=== PATIENT | female | born 1950 | race Caucasian/White ===

== ENCOUNTER 2018-01-18 14:27 | Emergency (ER) | payer BC, MEDICARE, OTHER ==
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
[2018-01-18] MEDS ORDERED: NS 0.9% 1000 ML* 1,000 ML IV ONE (15:04)
[2018-01-18 15:27] LABS: ABS Basophils 0.1 10^3/ul (0-0.2); ABS Eosinophils 0.1 10^3/ul (0-0.6); ABS Lymphocytes 3.2 10^3/ul (1.0-4.8); ABS Monocytes 0.4 10^3/ul (0-0.8); ABS Neutrophils 2.9 10^3/ul (1.5-7.7); ABS Nucleated RBC 0 10^3/ul; Eosinophil % 0.9 % (0-6); Hematocrit 38 % (35-47); Hemoglobin 12.2 g/dl (12.0-16.0); Lymphocyte % 48.4 % (25-47); Mean Corpuscular HGB Conc 32 g/dl (31-36); Mean Corpuscular Hemoglobin 27 pg (27-31); Mean Corpuscular Volume 82 fL (80-97); Mean Platelet Volume 8.8 um3 (7.4-10.4); Nucleated Red Blood Cells % 0.1; Platelet Count 152 10^3/ul (150-450); Red Blood Count 4.61 10^6/ul (4.00-5.40); Red Cell Distribution Width 15 % (10.5-15); White Blood Count 6.6 10^3/ul (3.5-10.8)
[2018-01-18 15:37] LABS: INR 1.02 (0.77-1.02)
[2018-01-18 15:45] LABS: EGFR Non-African American 57.6 (>60)
[2018-01-18] MEDS ORDERED: Iodixanol* (CONTRAST) 320 MG/ML 100 ML SDV IV ONE (15:55)
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
--- NOTE | 2018-01-18 16:16 | RAD ---
INDICATION: Neurologic changes code ryder. COMPARISON: There are no prior studies available for comparison. TECHNIQUE: A portable view of the chest was obtained. FINDINGS: Cardiac and mediastinal contours appear to be within normal limits. The lungs are underinflated and clear. No pleural effusion is seen. IMPRESSION: NO EVIDENCE FOR ACUTE DISEASE.
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
[2018-01-18 17:36] LABS: Urine Appearance Clear; Urine Blood Negative (Negative); Urine Color Straw; Urine Ketones Negative (Negative); Urine Protein Negative (Negative); Urine Specific Gravity 1.005 (1.010-1.030); Urine Urobilinogen Negative (Negative)
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
[2018-01-18 20:59] VITALS: BP 147/74
== END 2018-01-18 20:14 | disposition home or self-care (01) ==
LOC: ED 14:27
DX: F07.81 Postconcussional syndrome (principal); S16.1XXA Strain of muscle, fascia and tendon at neck level, initial encounter; Y92.410 Unspecified street and highway as the place of occurrence of the external cause; V89.2XXA Person injured in unspecified motor-vehicle accident, traffic, initial encounter; M25.512 Pain in left shoulder; H57.12 Ocular pain, left eye; R00.1 Bradycardia, unspecified; I65.22 Occlusion and stenosis of left carotid artery; I10 Essential (primary) hypertension; I25.10 Atherosclerotic heart disease of native coronary artery without angina pectoris; I25.2 Old myocardial infarction; M06.9 Rheumatoid arthritis, unspecified; M17.10 Unilateral primary osteoarthritis, unspecified knee; M19.049 Primary osteoarthritis, unspecified hand; F17.210 Nicotine dependence, cigarettes, uncomplicated; Z88.0 Allergy status to penicillin; Z88.3 Allergy status to other anti-infective agents; Z79.82 Long term (current) use of aspirin; Z79.899 Other long term (current) drug therapy
CPT/HCPCS: 36415; 70450; 70496; 70498; 70551; 71045; 72125; 80053; 80061; 81003; 83605; 84484; 85025; 85610; 85730; 86850; 86900; 86901; 93005; 96360; 99284; Q9967

== ENCOUNTER → 2018-02-20 02:17 | Emergency (ER) | payer MEDICARE, BC ==
[~2018-02-20 02:17] MED LIST: Acetaminophen TAB* 325 MG PO ONE; Meclizine TAB* 12.5 MG PO ONE; Morphine INJ* 2 MG/ML 1 ML SYRINGE (TWO MG - NEW SYRINGE VERSION) IV ONE; Potassium Chlor TAB* 20 MEQ TAB.ER PO ONE
--- OUTSIDE RECORDS SUMMARY | 2018-02-20 02:25 | XMS REPORT ---
:1950 External Reference #:[id number] Author Organization Esvin Ramon M.D., [facility] Address [address] [address] [place] [address] Phone [phone] Care Team Providers Name Role Phone MD Stanley, Ta Primary Care Physician Unavailable Payers Type Date Identification Numbers Payment Provider Subscriber Medicare Primary Policy Number: [id number] [place] Leyla Valenzuela PayID: [id number] [address] [place] [address] Health Maintenance Policy Number: [id number] [place] [employer] Leyla Valenzuela [facility] ([facility]) PayID: [id number] [address] [place] [address] Problems Date Description Provider Status Onset: 12/23/2013 Hyperlipidemia Active Onset: 05/13/2013 Malignant essential hypertension Active Onset: 02/13/2012 Aortic valve disorder Active Onset: 02/13/2012 Right bundle branch block Active Onset: 02/13/2012 Electrocardiogram abnormal Active Onset: 02/13/2012 Coronary arteriosclerosis Active Onset: 02/13/2012 Benign essential hypertension Active Onset: Problem Active Family History Date Family Member(s) Problem(s) Comments Father Noncontributory Mother Noncontributory Social History Type Date Description Comments ETOH Use Never used alcohol Smoking Patient has never smoked Allergies, Adverse Reactions, Alerts Date Description Reaction Status Severity Comments 12/16/2015 Methotrexate rash, GI issues active Moderate 12/04/2008 Tetracyclines active 12/04/2008 Penicillins active 12/04/2008 Shellfish active Medications Medication Date Status Form Strength Qnty SIG Indications Ordering Provider Prednisolone 02/02 Active Suspension 1% 10ml 1 drop Errol Acetate tid OS x Gutierrez, 1 week OD Lotemax 01/19 Active Suspension 0.5% 5unit instill Errol /2017 s one drop Gutierrez, tid OS x OD 1 week, then d/c Acetaminophen Extra 01/18 Active Tablets 500mg Three Unknown Strength Times Daily Vitamin D 01/18 Active Tablets 1000Unit Every Unknown (Cholecalciferol) Day Losartan Potassium 12/23 Active Tablets 100mg 90tab 1 by s mouth every day Hydrochlorothiazide 07/14 Active Tablets 25mg 15tab 1 po prn s ( when she has edema) Aspirin Active Tablets 81mg 90tab 1 po qd s Acetaminophen Active Tablets 500mg 1 po Unknown once a day Omeprazole Active Tablets DR 20mg 1 by Unknown / mouth every day prn Amlodipine Besylate Active Tablets 5mg 1 by Unknown / mouth every day ([facility] by Dr. Angel) Immunizations CPT Code Status Date Vaccine Lot # [id number] Given 09/21/2015 Pneumococcal Vaccine 2Yrs Or Older Vital Signs Date Vital Result Comment 01/19/2018 Intraocular Pressure Right Eye 16 mmHg Intraocular Pressure Left Eye 16 mmHg Results Test Date Test Result H/L Range Note Laboratory Studies 01/18/2018 Urine Specific [place] 1.005 Low 1.010- 1.030 Urine pH 7.0 5-9 Laboratory Studies 01/18/2018 Absolute Basophils (auto) 0.1 10^3/ul 0- 0.2 Absolute Eosinophils (auto) 0.1 10^3/ul 0-0.6 Absolute Lymphocytes (auto) 3.2 10^3/ul 1.0-4.8 Absolute Monocytes (auto) 0.4 10^3/ul 0-0.8 Absolute Neutrophils (auto) 2.9 10^3/ul 1.5-7.7 Activated Partial Thromboplast Time 29.9 seconds 26.0-36.3 Alanine Aminotransferase (Alt/SGPT) 16 U/L 7-52 Albumin 4.0 g/dL 3.2-5.2 Albumin/Globulin Ratio 1.1 1-3 Alkaline Phosphatase 45 U/L 34-104 Anion Gap 8 mmol/L 2-11 Aspartate Amino Transf (Ast/Sgot) 19 U/L 13-39 BUN/Creatinine Ratio 14.6 8-20 Basophils (%) (Auto) 0.8 % 0-2 Blood Urea Nitrogen 14 mg/dL 6-24 Calcium Level 9.7 mg/dL 8.6-10.3 Carbon Dioxide Level 28 mmol/L 22-32 Chloride Level 105 mmol/L 101-111 Cholesterol Level 270 mg/dL Creatinine 0.96 mg/dL High 0.51-0.95 Eosinophils (%) (Auto) 0.9 % 0-6 Estimated GFR () 69.7 Estimated GFR (Non- 57.6 Globulin 3.5 g/dL 2-4 Glucose Level 84 mg/dL 70-100 HDL Cholesterol 65.4 mg/dL Hematocrit 38 % 35-47 Hemoglobin 12.2 g/dL 12.0-16.0 International Ratio (Anticoag Ther) 1.02 0.77-1.02 LDL Cholesterol 182 mg/dL Lactic Acid Level 0.6 mmol/L 0.5-2.0 Lymphocytes (%) (Auto) 48.4 % High 25-47 Mean Corpuscular Hemoglobin 27 pg 27-31 Mean Corpuscular Hemoglobin Concent 32 g/dL 31-36 Mean Corpuscular Volume 82 fL 80-97 Mean Platelet Volume 8.8 um3 7.4-10.4 Monocytes (%) (Auto) 6.4 % 0-7 Neutrophils (%) (Auto) 43.5 % 38-83 Nucleated RBC Absolute Count (auto) 0 10^3/ul Nucleated Red Blood Cells % 0.1 Platelet Count 152 10^3/ul 150-450 Potassium Level 3.4 mmol/L Low 3.5-5.0 Red Blood Count 4.61 10^6/ul 4.00-5.40 Red Cell Distribution Width 15 % 10.5-15 Sodium Level 141 mmol/L 135-145 Total Bilirubin 0.50 mg/dL 0.2-1.0 Total Protein 7.5 g/dL 6.4-8.9 Triglycerides Level 115 mg/dL Troponin I 0.04 ng/mL High White Blood Count 6.6 10^3/ul 3.5-10.8 Laboratory test finding 12/16/2015 Albumin 4.3 g/dL 3.2-5.2 Albumin/Globulin Ratio 1.3 1-3 Alkaline Phosphatase 43 U/L 34-104 Alt 18 U/L 7-52 Anion Gap 6 mmol/L 2-11 Ast 18 U/L 13-39 BUN/Creatinine Ratio 13.6 8-20 Blood Urea Nitrogen 16 mg/dL 6-24 C Reactive Protein < 1.00 mg/L < 5.00 1 Calcium 9.8 mg/dL 8.6-10.3 Chloride 106 mmol/L 101-111 Co2 Carbon Dioxide 29 mmol/L 22-32 Creatine Kinase(CK) 202 U/L 10-223 2 Creatinine 1.18 mg/dL High 0.51-0.95 Egfr 58.8 >60 Egfr Non- 45.7 >60 Erythrocyte Sed Rate 36 mm/Hr 0-40 3 Globulin 3.3 g/dL 2-4 Glucose 81 mg/dL 70-100 Magnesium 2.0 mg/dL 1.9-2.7 4 Potassium 4.1 mmol/L 3.5-5.0 Sodium 141 mmol/L 133-145 5 TSH (Thyroid Stim Horm) 1.37 ?IU/mL 0.34-5.60 6 Total Bilirubin 0.40 mg/dL 0.2-1.0 Total Protein 7.6 g/dL 6.4-8.9 Vitamin B12 395 pg/mL 180-914 7 CBC Auto Diff 12/16/2015 Abs Basophils 0 10^3/uL 0-0.2 Abs Eosinophils 0.1 10^3/uL 0-0.6 Abs Lymphocytes 4.8 10^3/uL 1.0-4.8 Abs Monocytes 0.5 10^3/uL 0-0.8 Abs Neutrophils 2.3 10^3/uL 1.5-7.7 Abs Nucleated RBC 0.01 10^3/uL Basophil % 0.6 % 0-2 Eosinophil % 1.5 % 0-6 Granulocyte % 29.5 % Low 38-83 Hematocrit 37 % 35-47 Hemoglobin 11.9 g/dL Low 12.0-16.0 Lymphocyte % 61.8 % High 25-47 Mean Corpuscular HGB Conc 32 g/dL 31-36 Mean Corpuscular Hemoglobin 27 pg 27-31 Mean Corpuscular Volume 84 fL 80-97 Mean Platelet Volume 9 um3 7.4-10.4 Monocyte % 6.6 % 1-9 Nucleated Red Blood Cells % 0.2 Platelet Count 166 10^3/uL 150-450 Red Blood Count 4.40 10^6/uL 4.0-5.4 Red Cell Distribution Width 16 % High 10.5-15 White Blood Count 7.8 10^3/uL 3.5-10.8 Laboratory test finding 10/20/2015 Albumin 4.4 g/dL 3.2-5.2 Albumin/Globulin Ratio 1.2 1-3 Alkaline Phosphatase 40 U/L 34-104 Alt 53 U/L High 7-52 Anion Gap 6 mmol/L 2-11 Ast 38 U/L 13-39 BUN/Creatinine Ratio 14.9 8-20 Blood Urea Nitrogen 17 mg/dL 6-24 C Reactive Protein < 1.00 mg/L < 5.00 8 Calcium 10.0 mg/dL 8.6-10.3 Chloride 105 mmol/L 101-111 Co2 Carbon Dioxide 26 mmol/L 22-32 Creatinine 1.14 mg/dL High 0.51-0.95 Egfr 61.1 >60 Egfr Non- 47.5 >60 Erythrocyte Sed Rate 39 mm/Hr 0-40 Globulin 3.6 g/dL 2-4 Glucose 88 mg/dL 70-100 Potassium 4.0 mmol/L 3.5-5.0 Sodium 137 mmol/L 133-145 9 Total Bilirubin 0.50 mg/dL 0.2-1.0 Total Protein 8.0 g/dL 6.4-8.9 CBC Auto Diff 10/20/2015 Abs Basophils 0 10^3/uL 0-0.2 Abs Eosinophils 0 10^3/uL 0-0.6 Abs Lymphocytes 2.2 10^3/uL 1.0-4.8 Abs Monocytes 0.4 10^3/uL 0-0.8 Abs Neutrophils 2.7 10^3/uL 1.5-7.7 Abs Nucleated RBC 0.02 10^3/uL Basophil % 0.6 % 0-2 Eosinophil % 0.8 % 0-6 Granulocyte % 50.5 % 38-83 Hematocrit 39 % 35-47 Hemoglobin 12.4 g/dL 12.0-16.0 Lymphocyte % 40.8 % 25-47 Mean Corpuscular HGB Conc 32 g/dL 31-36 Mean Corpuscular Hemoglobin 27 pg 27-31 Mean Corpuscular Volume 83 fL 80-97 Mean Platelet Volume 9 um3 7.4-10.4 Monocyte % 7.3 % 1-9 Nucleated Red Blood Cells % 0.4 Platelet Count 170 10^3/uL 150-450 Red Blood Count 4.64 10^6/uL 4.0-5.4 Red Cell Distribution Width 16 % High 10.5-15 White Blood Count 5.4 10^3/uL 3.5-10.8 Laboratory test finding 09/25/2015 Albumin 4.3 g/dL 3.2-5.2 Albumin/Globulin Ratio 1.2 1-3 Alkaline Phosphatase 41 U/L 34-104 Alt 23 U/L 7-52 Anion Gap 5 mmol/L 2-11 Ast 25 U/L 13-39 BUN/Creatinine Ratio 14.0 8-20 Blood Urea Nitrogen 17 mg/dL 6-24 C Reactive Protein 1.63 mg/L < 5.00 10 Calcium 9.4 mg/dL 8.6-10.3 Chloride 105 mmol/L 101-111 Co2 Carbon Dioxide 29 mmol/L 22-32 Creatinine 1.21 mg/dL High 0.51-0.95 Egfr 57.1 >60 Egfr Non- 44.4 >60 Erythrocyte Sed Rate 43 mm/Hr High 0-40 Globulin 3.5 g/dL 2-4 Glucose 80 mg/dL 70-100 Potassium 3.6 mmol/L 3.5-5.0 Sodium 139 mmol/L 133-145 11 Total Bilirubin 0.40 mg/dL 0.2-1.0 Total Protein 7.8 g/dL 6.4-8.9 CBC Auto Diff 09/25/2015 Abs Basophils 0 10^3/uL 0-0.2 Abs Eosinophils 0.1 10^3/uL 0-0.6 Abs Lymphocytes 2.9 10^3/uL 1.0-4.8 Abs Monocytes 0.3 10^3/uL 0-0.8 Abs Neutrophils 1.8 10^3/uL 1.5-7.7 Abs Nucleated RBC 0.02 10^3/uL Basophil % 0.5 % 0-2 Eosinophil % 1.7 % 0-6 Granulocyte % 35.0 % Low 38-83 Hematocrit 39 % 35-47 Hemoglobin 12.0 g/dL 12.0-16.0 Lymphocyte % 57.0 % High 25-47 Mean Corpuscular HGB Conc 31 g/dL 31-36 Mean Corpuscular Hemoglobin 26 pg Low 27-31 Mean Corpuscular Volume 85 fL 80-97 Mean Platelet Volume 10 um3 7.4-10.4 Monocyte % 5.8 % 1-9 Nucleated Red Blood Cells % 0.3 Platelet Count 183 10^3/uL 150-450 Red Blood Count 4.60 10^6/uL 4.0-5.4 Red Cell Distribution Width 15 % 10.5-15 White Blood Count 5.1 10^3/uL 3.5-10.8 1 Acute inflammation: >10.00 2 Please check this week please 3 Please check this week please 4 Please check this week please 5 Because ethnic data is not always readily available, this report includes an eGFR for both -Americans and non- Americans. The National Kidney Disease Education Program (NKDEP) does not endorse the use of the MDRD equation for patients that are not between the ages of 18 and 70, are , have extremes of body size, muscle mass, or nutritional status, or are non- or non-. According to the National Kidney Foundation, irrespective of diagnosis, the stage of the disease is based on the level of kidney function: Stage Description GFR(mL/min/1.73 m(2)) 1 Kidney damage with normal or decreased GFR 90 2 Kidney damage with mild decrease in GFR 60-89 3 Moderate decrease in GFR 30-59 4 Severe decrease in GFR 15-29 5 Kidney failure <15 (or dialysis) 6 Please check this week please 7 Normal Range 180 to 914 Indeterminate Range 145 to 180 Deficient Range <145 8 Acute inflammation: >10.00 9 Because ethnic data is not always readily available, this report includes an eGFR for both -Americans and non- Americans. The National Kidney Disease Education Program (NKDEP) does not endorse the use of the MDRD equation for patients that are not between the ages of 18 and 70, are , have extremes of body size, muscle mass, or nutritional status, or are non- or non-. According to the National Kidney Foundation, irrespective of diagnosis, the stage of the disease is based on the level of kidney function: Stage Description GFR(mL/min/1.73 m(2)) 1 Kidney damage with normal or decreased GFR 90 2 Kidney damage with mild decrease in GFR 60-89 3 Moderate decrease in GFR 30-59 4 Severe decrease in GFR 15-29 5 Kidney failure <15 (or dialysis) 10 Acute inflammation: >10.00 11 Because ethnic data is not always readily available, this report includes an eGFR for both -Americans and non- Americans. The National Kidney Disease Education Program (NKDEP) does not endorse the use of the MDRD equation for patients that are not between the ages of 18 and 70, are , have extremes of body size, muscle mass, or nutritional status, or are non- or non-. According to the National Kidney Foundation, irrespective of diagnosis, the stage of the disease is based on the level of kidney function: Stage Description GFR(mL/min/1.73 m(2)) 1 Kidney damage with normal or decreased GFR 90 2 Kidney damage with mild decrease in GFR 60-89 3 Moderate decrease in GFR 30-59 4 Severe decrease in GFR 15-29 5 Kidney failure <15 (or dialysis) Procedures Date CPT Code Description Status 01/19/2018 03690 Ophthalmoscopy Initial Completed 01/19/2018 88494 Eye Exam New Intermediate Completed Plan of Care Future Appointment(s):02/09/2018 11:15 am - Errol Gutierrez OD at [id number] - Errol Gutierrez, [id number] Vitreous degeneration, left eyeFollow up:1 week f/u
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
[2018-02-20 03:07] LABS: ABS Basophils 0 10^3/ul (0-0.2); ABS Eosinophils 0.1 10^3/ul (0-0.6); ABS Monocytes 0.5 10^3/ul (0-0.8); ABS Neutrophils 2.6 10^3/ul (1.5-7.7); ABS Nucleated RBC 0 10^3/ul; Eosinophil % 1.5 % (0-6); Hematocrit 38 % (35-47); Hemoglobin 12.3 g/dl (12.0-16.0); Lymphocyte % 54.9 % (25-47); Mean Corpuscular HGB Conc 33 g/dl (31-36); Mean Corpuscular Hemoglobin 27 pg (27-31); Mean Corpuscular Volume 83 fL (80-97); Mean Platelet Volume 8.6 um3 (7.4-10.4); Nucleated Red Blood Cells % 0.1; Platelet Count 173 10^3/ul (150-450); Red Blood Count 4.58 10^6/ul (4.00-5.40); Red Cell Distribution Width 15 % (10.5-15); White Blood Count 7.3 10^3/ul (3.5-10.8)
[2018-02-20 03:24] LABS: EGFR Non-African American 37.9 (>60)
--- NOTE | 2018-02-20 03:47 | RAD ---
EXAM: CT Head Without Intravenous Contrast CLINICAL HISTORY: 67 years old, female; Signs and symptoms; Dizziness and syncope and collapse and walking, difficulty; Patient HX: Dizzy and fell TECHNIQUE: Axial computed tomography images of the head/brain without intravenous contrast. COMPARISON: BRAIN WO CT BRAIN WO 2018-01-18 17:05 FINDINGS: Brain: No evidence of acute intracranial hemorrhage. No intracranial mass or mass effect. 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 Ventricles: No obstructive hydrocephalus. Bones/joints: Unremarkable. No acute fracture. Soft tissues: Unremarkable. Vasculature: Vascular calcification. Sinuses: Unremarkable as visualized. No acute sinusitis. Mastoid air cells: Unremarkable as visualized. No mastoid effusion. Other findings: Since prior head CT of 01/18/2018, no new findings. IMPRESSION: No acute findings. R0
[2018-02-20 03:52] LABS: INR 1.02 (0.77-1.02)
[2018-02-20 04:45] VITALS: BP 131/76
--- NOTE | 2018-02-20 07:49 | RAD ---
HISTORY: fall COMPARISONS: September 07, 2015 VIEWS: 1: frontal portable view of the chest at 3:17 AM FINDINGS: LINES AND TUBES: None. CARDIOMEDIASTINAL SILHOUETTE: The cardiac silhouette is enlarged. The cardiomediastinal silhouette is otherwise normal for portable technique. PLEURA: The costophrenic angles are sharp. No pleural abnormalities are noted. LUNG PARENCHYMA: The lungs are clear. ABDOMEN: The upper abdomen is clear. There is no subphrenic gas. BONES AND SOFT TISSUES: No bone or soft tissue abnormalities are noted. IMPRESSION: CARDIOMEGALY. NO ACTIVE CARDIOPULMONARY DISEASE. R2
--- NOTE | 2018-02-20 07:49 | RAD ---
HISTORY: fall, left-sided weakness, COMPARISONS: None VIEWS: 2, Frontal and lateral views of the left forearm FINDINGS: BONE DENSITY: Normal. BONES: There is no displaced fracture. JOINTS: There is no arthropathy. ALIGNMENT: There is no dislocation. SOFT TISSUES: Unremarkable. OTHER FINDINGS: None. IMPRESSION: NO ACUTE OSSEOUS INJURY. IF SYMPTOMS PERSIST, RECOMMEND REPEAT IMAGING. R0
== END | disposition home or self-care (01) ==
LOC: ED 02:17
DX: H81.10 Benign paroxysmal vertigo, unspecified ear (principal); R00.1 Bradycardia, unspecified; I45.10 Unspecified right bundle-branch block; I51.7 Cardiomegaly; F17.210 Nicotine dependence, cigarettes, uncomplicated; I25.10 Atherosclerotic heart disease of native coronary artery without angina pectoris; M06.9 Rheumatoid arthritis, unspecified; M19.90 Unspecified osteoarthritis, unspecified site; Z95.5 Presence of coronary angioplasty implant and graft; Z79.899 Other long term (current) drug therapy; Z88.0 Allergy status to penicillin; Z88.3 Allergy status to other anti-infective agents
CPT/HCPCS: 36415; 70450; 71045; 80053; 82550; 83605; 83735; 84443; 84484; 85025; 85610; 85730; 93005; 99283; A9270-GY

== ENCOUNTER 2018-07-04 12:00 | Emergency (ER) | payer MEDICARE, BC ==
--- NOTE | 2018-07-04 13:47 | ED ---
Upper Extremity Pain - HPI Summary HPI Summary: This patient is a 67 year old female presenting to [facility] with a chief complaint of ecchymosis since yesterday morning. Patient states that she had pain in her left arm 2 days ago and when she woke up yesterday morning, she woke up to an unexplained bruised on her upper arm. Patient states that today, the bruising had shifted downwards and has gotten bigger since yesterday. The pain is rated 8 /10 in severity. Symptoms aggravated by nothing. Symptoms alleviated by nothing. Patient denies any other medical symptoms at this time. - History of Current Complaint Chief Complaint: EDExtremityUpper Stated Complaint: BRUISE ON LF SHOULDER Time Seen by Provider: 07/04/18 13:09 Hx Obtained From: Patient Mechanism Of Injury: Unknown Onset/Duration: Started Days Ago, Still Present Timing: Constant Severity Currently: Mild Pain Location: Arm - left Aggravating Factor(s): Nothing Alleviating Factor(s): Nothing - Allergies/Home Medications Allergies/Adverse Reactions: Allergies Allergy/AdvReac Type Severity Reaction Status Date / Time ampicillin Allergy Anaphylatic Verified 07/04/18 12:45 Shock Penicillins Allergy Anaphylatic Verified 07/04/18 12:45 Shock shellfish derived Allergy Anaphylatic Verified 07/04/18 12:45 Shock Tetracyclines Allergy Anaphylatic Verified 07/04/18 12:45 Shock PMH/Surg Hx/FS Hx/Imm Hx Previously Healthy: No Endocrine/Hematology History: Denies: Hx Diabetes Cardiovascular History: Reports: Hx Angina, Hx Coronary Artery Disease, Hx Hypercholesterolemia, Hx Hypertension, Hx Myocardial Infarction - 2000 Denies: Hx Pacemaker/ICD, Hx Valvular Heart Disease Respiratory History: Denies: Hx Asthma, Hx Chronic Obstructive Pulmonary Disease (COPD) Musculoskeletal History: Reports: Hx Rheumatoid Arthritis Denies: Hx Osteoporosis Sensory History: Denies: Hx Contacts or Glasses, Hx Hearing Aid Opthamlomology History: Denies: Hx Contacts or Glasses Psychiatric History: Denies: Hx Panic Disorder - Surgical History Surgery Procedure, Year, and Place: CARDIAC CATH W/ STENTING; PARTIAL HYSTERECTOMY Infectious Disease History: No Infectious Disease History: Denies: Traveled Outside the [place] in Last 30 Days - Family History Known Family History: Positive: Cardiac Disease - [place], Diabetes, Other - stroke - Social History Occupation: Retired Alcohol Use: None Hx Substance Use: No Substance Use Type: Reports: None Substance Use Comment - Amount & Last Used: occasionally Hx Tobacco Use: Yes Smoking Status (MU): Light Every Day Tobacco Smoker Type: Cigarettes Amount Used/How Often: 2-3 cigarettes/day Length of Time of Smoking/Using Tobacco: one year Have You Smoked in the Last Year: Yes Review of Systems Negative: Fever Positive: Bruising - left upper arm All Other Systems Reviewed And Are Negative: Yes Physical Exam - Summary Physical Exam Summary: Appearance: Well appearing, no pain distress Skin: warm, dry, 1 by 1.7 x 2.2 cm hematoma present in lateral aspect of left upper arm. Head/face: normal, partial right facial palsy Eyes: EOMI, AMINA ENT: mucous membranes moist Neck: supple, non-tender Respiratory: CTA, breath sounds present Cardiovascular: RRR, pulses symmetrical Abdomen: non-tender, soft Bowel Sounds: present Musculoskeletal: normal, strength/ROM intact Neuro: normal, sensory motor intact, A&Ox3, dysarthria Triage Information Reviewed: Yes Vital Signs On Initial Exam: Initial Vitals Temp Pulse Resp BP Pulse Ox 98.7 F 61 20 102/50 96 07/04/18 12:41 07/04/18 12:41 07/04/18 12:41 07/04/18 12:41 07/04/18 12:41 Vital Signs Reviewed: Yes Diagnostics - Vital Signs Vital Signs Temp Pulse Resp BP Pulse Ox 07/04/18 12:41 98.7 F 61 20 102/50 96 - Laboratory Lab Statement: Any lab studies that have been ordered have been reviewed, and results considered in the medical decision making process. - Radiology Humerus XR Summary of Radiographic Findings: Humerous XR reveals, per radiologist, IMPRESSION: NO ACUTE OSSEUS INJURY. IF SYMPTOMS PERSIST, RECOMMEND REPEAT IMAGING. ED physician has reviewed this radiology report. - EKG 1303 Cardiac Rate: Bradycardia EKG Rhythm: Sinus Bradycardia - 50 BPM Summary of EKG Findings: An EKG, taken 1303, reveals Sinus Bradycardia (50 BPM) , left axis deviation, RBBB, nonspecific ST Course/Dx - Course Course Of Treatment: Nurse's notes reviewed. Patient has ecchymosis in her left upper arm. Bedside ultrasound reveals a small underlying hematoma. X- rays negative. She was treated with lidocaine patch and compression with Parag wrap. She will follow-up with her primary care physician. - Diagnoses Differential Diagnosis/HQI/PQRI: Positive: Contusion, Fracture (Closed), Hematoma Provider Diagnoses: Hematoma Discharge - Sign-Out/Discharge Documenting (check all that apply): Patient Departure - Discharge Plan Condition: Improved Disposition: HOME Patient Education Materials: Hematoma (ED) Referrals: Ta Angel MD [Primary Care Provider] - Additional Instructions: Warm compresses to the area. Lidocaine patches can be obtained over-the- counter. These are far cheaper than the prescribed version. He may help with the pain. Use the Parag wrap for compression. Follow up with your doctor tomorrow. Return if worse, new symptoms or other concerns. - Billing Disposition and Condition Condition: IMPROVED Disposition: Home - Attestation Statements Document Initiated by Claudy: Yes Documenting Scribe: Radha Colby Provider For Whom Claudy is Documenting (Include Credential): Merritt Sierra MD Scribe Attestation: Radha Villanueva scribed for Merritt Sierra MD on 07/04/18 at 1957. Scribe Documentation Reviewed: Yes Provider Attestation: The documentation as recorded by the Radha walker accurately reflects the service I personally performed and the decisions made by , Merritt Sierra MD Status of Scribshey Document: Viewed
[2018-07-04] MEDS ORDERED: Lidocaine PATCH 5%* 1 PATCH TRANSDERM SCH (14:00)
[2018-07-04 14:25] VITALS: BP 110/59
[2018-07-04] MEDS ORDERED: Lidocaine Patch REMOVE* 1 NOTE MISC SCH (21:00)
== END 2018-07-04 14:24 | disposition home or self-care (01) ==
LOC: ED 12:00
DX: S40.022A Contusion of left upper arm, initial encounter (principal); X58.XXXA Exposure to other specified factors, initial encounter; Y92.9 Unspecified place or not applicable; Z88.0 Allergy status to penicillin; F17.210 Nicotine dependence, cigarettes, uncomplicated; I25.10 Atherosclerotic heart disease of native coronary artery without angina pectoris
CPT/HCPCS: 93005; 99282; A9270-GY

== ENCOUNTER 2020-12-06 18:48 | Inpatient (IN) ==
[2020-12-06 19:06] LABS: Hematocrit 40 % (35-47); Mean Corpuscular HGB Conc 33 g/dL (31-36); Mean Corpuscular Hemoglobin 27 pg (27-31); Mean Corpuscular Volume 83 fL (80-97); Mean Platelet Volume 9.2 fL (7.4-10.4); Platelet Count 186 10^3/uL (150-450); Red Blood Count 4.75 10^6 /uL (3.70-4.87); Red Cell Distribution Width 15 % (10-15); White Blood Count 8.6 10^3/uL (3.5-10.8)
[2020-12-06] MEDS ORDERED: Morphine 4 MG/ML VIAL (1 ml) IV ONE ×3 (19:11→20:08)
[2020-12-06 19:13] LABS: INR 1.1 (0.82-1.09)
[2020-12-06 19:25] LABS: ALT 19 U/L (7-52); Albumin/Globulin Ratio 1.2 (1-3); Alkaline Phosphatase 44 U/L (35-149); Blood Urea Nitrogen 17 mg/dL (6-24); CO2 Carbon Dioxide 26 mmol/L (22-32); Calcium 9.4 mg/dL (8.6-10.3); Chloride 104 mmol/L (101-111); EGFR African American 57.9 (>60); EGFR Non-African American 47.8 (>60); Globulin 3.3 g/dL (2-4); Glucose 108 mg/dL (70-100); Sodium 139 mmol/L (135-145); Total Protein 7.3 g/dL (6.4-8.9)
[2020-12-06 19:33] LABS: ABS Basophils 0.1 10^3/ul (0-0.2); ABS Eosinophils 0.1 10^3/ul (0-0.6); ABS Lymphocytes 5.5 10^3/ul (1.0-4.8); ABS Monocytes 0.6 10^3/ul (0-0.8); ABS Neutrophils 2.3 10^3/ul (1.5-7.7); Eosinophil % 1.5 %; Lymphocyte % 63.7 %; Nucleated Red Blood Cells % 0.1
[2020-12-06] MEDS ORDERED: Iodixanol (CONTRAST) 320 MG/ML 100 ML SDV IV ONE (19:35)
[2020-12-06] MEDS ORDERED: NS 0.9% 1000 ml BAG 1,000 ML IV ONE (19:35)
[2020-12-06] MEDS ORDERED: Ondansetron 4 mg VIAL 2 MG/ML 2 ml VIAL IV ONE (19:42)
[2020-12-06] MEDS ORDERED: Ondansetron 4 mg VIAL 2 MG/ML 2 ml VIAL ONE (19:43)
[2020-12-06 19:47] LABS: AST 21 U/L (13-39); Anion Gap 9 mmol/L (2-11); Potassium 3.1 mmol/L (3.5-5.0); Troponin I 0.05 ng/mL (<0.03)
[2020-12-06] MEDS ORDERED: nitroGLYCERIN DRIP 25,000 MCG/250 ML BTL IV ONE (20:04)
[2020-12-06] MEDS ORDERED: Heparin DRIP 25,000 UNITS BAG 25,000 UNITS/500 ML BAG IV SCH (20:15)
[2020-12-06] MEDS ORDERED: Heparin 5000 UNITS/ML 1 mL VIAL IV SCH (21:00)
[2020-12-06 22:03] LABS: Blood Urea Nitrogen 15 mg/dL (6-24); EGFR African American 71.7 (>60); EGFR Non-African American 59.3 (>60)
[2020-12-06 22:10] LABS: Troponin I 0.22 ng/mL (<0.03)
[2020-12-06 23:41] LABS: Cholesterol 317 mg/dL; HDL Cholesterol 87.1 mg/dL; LDL Cholesterol 195 mg/dL; Triglycerides 173 mg/dL
[2020-12-07 00:57] LABS: Troponin I 0.95 ng/mL (<0.03)
[2020-12-07] MEDS ORDERED: Nitro 2% OINT (Nitroglycerin) 1 INCH/PAK TOPICAL ONE (03:49)
[2020-12-07] MEDS ORDERED: NS 0.9% w/ 20 Meq KCL 1000 ml 1,000 ML IV SCH (06:00)
[2020-12-07 06:18] LABS: ABS Monocytes 0.5 10^3/ul (0-0.8); ABS Neutrophils 5.7 10^3/ul (1.5-7.7); Eosinophil % 0.4 %; Hematocrit 39 % (35-47); Hemoglobin 12.4 g/dL (12.0-16.0); Lymphocyte % 23.8 %; Mean Corpuscular HGB Conc 32 g/dL (31-36); Mean Corpuscular Hemoglobin 27 pg (27-31); Mean Corpuscular Volume 85 fL (80-97); Mean Platelet Volume 8.9 fL (7.4-10.4); Platelet Count 119 10^3/uL (150-450); Red Blood Count 4.53 10^6 /uL (3.70-4.87); Red Cell Distribution Width 16 % (10-15); White Blood Count 8.2 10^3/uL (3.5-10.8)
[2020-12-07 06:45] LABS: Troponin I 6.96 ng/mL (<0.03)
[2020-12-07] MEDS ORDERED: Prochlorperazine 5 mg/ml 2 ml VIAL (10 mg) IV PRN (07:48)
[2020-12-07] MEDS: Cholecalciferol (VIT D3) 1,000 unit TAB PO SCH (08:17)
[2020-12-07] MEDS: Aspirin EC 81 mg TAB.EC (enteric coated) PO SCH (08:18)
[2020-12-07 09:11] LABS: Anion Gap 12 mmol/L (2-11); CO2 Carbon Dioxide 21 mmol/L (22-32); Calcium 9.1 mg/dL (8.6-10.3); Chloride 103 mmol/L (101-111); Magnesium 1.9 mg/dL (1.9-2.7); Potassium 3.5 mmol/L (3.5-5.0); Sodium 136 mmol/L (135-145)
[2020-12-07 09:17] LABS: Blood Urea Nitrogen 13 mg/dL (6-24); EGFR African American 87.8 (>60); EGFR Non-African American 72.6 (>60); Glucose 99 mg/dL (70-100)
[2020-12-07] MEDS ORDERED: Nitro Patch/OINT Remove PATCH TOPICAL ONE (10:00)
[2020-12-07 11:08] LABS: Troponin I 15.41 ng/mL (<0.03)
[2020-12-07] MEDS ORDERED: hydrALAZINE 20 mg/ml 1 ML Vial IV IV SLOW PU PRN ×2 (11:16→16:04)
[2020-12-07 11:37] LABS: Activated Partial Thrombo Time 117.2 seconds (26.0-38.0)
[2020-12-07] MEDS ORDERED: Heparin 2 UNITS/ML 1000 mls 3,000 ML IV ONE (12:13)
[2020-12-07] MEDS ORDERED: Midazolam 5 mg/5 ml VIAL 1 mg/ml 5 ml VIAL (5 mg) ONE (12:13)
[2020-12-07] MEDS ORDERED: Heparin 1,000 UNIT/ML 10 ml (10,000 UNITS) CATHLAB/DIALYSIS ONE (12:13)
[2020-12-07] MEDS ORDERED: fentaNYL 100 mcg/2 ml 50 MCG/ML VIAL ONE (12:13)
[2020-12-07] MEDS ORDERED: VERAPAMIL 2.5 MG/ML 2 ML VIAL ** 5 mg/2 ml ONE (12:13)
[2020-12-07] MEDS ORDERED: nitroGLYCERIN DRIP 25,000 MCG/250 ML BTL ONE (12:14)
[2020-12-07] MEDS ORDERED: Iohexol 350 (CONTRAST) 200 ML MDV IV ONE (12:14)
[2020-12-07] MEDS ORDERED: Lidocaine 1% VIAL 10 MG/ML VIAL ONE (12:14)
[2020-12-07 12:40] LABS: ABS Lymphocytes 1.5 10^3/ul (1.0-4.8); ABS Monocytes 0.4 10^3/ul (0-0.8); ABS Neutrophils 6.2 10^3/ul (1.5-7.7); Eosinophil % 0.5 %; Hematocrit 40 % (35-47); Hemoglobin 12.8 g/dL (12.0-16.0); Lymphocyte % 17.8 %; Mean Corpuscular HGB Conc 32 g/dL (31-36); Mean Corpuscular Hemoglobin 27 pg (27-31); Mean Corpuscular Volume 84 fL (80-97); Mean Platelet Volume 9.3 fL (7.4-10.4); Nucleated Red Blood Cells % 0.1; Platelet Count 142 10^3/uL (150-450); Red Blood Count 4.74 10^6 /uL (3.70-4.87); Red Cell Distribution Width 15 % (10-15); White Blood Count 8.2 10^3/uL (3.5-10.8)
[2020-12-07 12:50] LABS: Anion Gap 10 mmol/L (2-11); Blood Urea Nitrogen 11 mg/dL (6-24); CO2 Carbon Dioxide 23 mmol/L (22-32); Calcium 9.1 mg/dL (8.6-10.3); Chloride 102 mmol/L (101-111); EGFR African American 94.8 (>60); EGFR Non-African American 78.4 (>60); Glucose 98 mg/dL (70-100); Potassium 3.4 mmol/L (3.5-5.0); Sodium 135 mmol/L (135-145)
[2020-12-07 12:56] LABS: INR 1.16 (0.82-1.09)
[2020-12-07] MEDS ORDERED: Magnesium Sulfate IV 1GM/100ML 1 GM/100 ML BAG IV ONE (13:01)
[2020-12-07] MEDS ORDERED: Metoprolol Tartrate 5 mg VIAL 5 ml VIAL (1 mg/ml) ONE (13:13)
[2020-12-07] MEDS ORDERED: Bivalirudin 250 MG VIAL ONE (13:21)
[2020-12-07] MEDS ORDERED: hydrALAZINE 20 mg/ml 1 ML Vial IV ONE (13:49)
[2020-12-07] MEDS ORDERED: NS 0.9% 1000 ml BAG 1,000 ML IV SCH (14:00)
[2020-12-07] MEDS: KCL 20 MEQ/100 ML IVPREMIX 20 MEQ/100 ML BAG IV SCH ×2 (15:07→20:15)
[2020-12-07] MEDS ORDERED: Ondansetron 4 mg VIAL 2 MG/ML 2 ml VIAL IV PRN (15:48)
[2020-12-07] MEDS ORDERED: Metoclopramide 5 MG/ML VIAL (10 mg) IV SLOW PU ONE (17:23)
[2020-12-07] MEDS ORDERED: Metoclopramide 5 MG/ML VIAL (10 mg) ONE (17:24)
[2020-12-07] MEDS ORDERED: Lorazepam PYXIS KEY PRN (17:41)
[2020-12-07] MEDS ORDERED: LORazepam 2 mg VIAL 1 ml IV PUSH PRN (17:41)
[2020-12-07] MEDS ORDERED: LORazepam 2 mg VIAL 1 ml ONE (17:44)
[2020-12-07] MEDS ORDERED: Lorazepam PYXIS KEY ONE (17:44)
[2020-12-07] MEDS ORDERED: Pantoprazole VIAL 40 MG VIAL IV SCH (18:00)
[2020-12-08 04:39] LABS: EGFR African American 75.4 (>60); EGFR Non-African American 62.3 (>60)
[2020-12-08 07:49] LABS: Calcium 9.4 mg/dL (8.6-10.3); Magnesium 2.2 mg/dL (1.9-2.7); Phosphorus 2.4 mg/dL (2.5-5.0); Potassium 3.6 mmol/L (3.5-5.0)
[2020-12-08] MEDS: Aspirin EC 81 mg TAB.EC (enteric coated) PO SCH (08:54)
[2020-12-08] MEDS: Cholecalciferol (VIT D3) 1,000 unit TAB PO SCH (08:54)
[2020-12-08] MEDS ORDERED: Potassium Phosphate IV 15 MMOLE in NS 0.9% 250 ml 250 ML IVPB ONE (09:00)
[2020-12-08 15:38] VITALS: BP 104/66
== END 2020-12-08 15:30 | disposition home or self-care (01) ==
LOC: ED 18:48 → MEDTELE 22:30 → EDHOLD 22:30 → MEDTELE 12-07 03:09 → ICU 12-07 14:24
PROVIDERS: ADMIT Internal Medicine; ATTEND Surgery Surgical Critical Care

== ENCOUNTER 2021-01-22 12:22 | Inpatient (IN) ==
[2021-01-22] MEDS ORDERED: Heparin - STEMI 5,000 UNITS/ML 1 ml VIAL IV ONE (12:25)
[2021-01-22 13:31] LABS: ABS Eosinophils 0.1 10^3/ul (0-0.6); ABS Lymphocytes 2.5 10^3/ul (1.0-4.8); ABS Monocytes 0.4 10^3/ul (0-0.8); Eosinophil % 1.9 %; Hematocrit 35 % (35-47); Hemoglobin 11.5 g/dL (12.0-16.0); Lymphocyte % 49.2 %; Mean Corpuscular HGB Conc 33 g/dL (31-36); Mean Corpuscular Hemoglobin 27 pg (27-31); Mean Corpuscular Volume 84 fL (80-97); Mean Platelet Volume 9.1 fL (7.4-10.4); Nucleated Red Blood Cells % 0.1; Platelet Count 145 10^3/uL (150-450); Red Blood Count 4.23 10^6 /uL (3.70-4.87); Red Cell Distribution Width 15 % (10-15)
[2021-01-22 13:42] LABS: Albumin 3.8 g/dL (3.2-5.2); Anion Gap 9 mmol/L (2-11); CO2 Carbon Dioxide 22 mmol/L (22-32); Calcium 8.7 mg/dL (8.6-10.3); Chloride 109 mmol/L (101-111); Magnesium 1.9 mg/dL (1.9-2.7); Sodium 140 mmol/L (135-145)
[2021-01-22 13:48] LABS: ALT 14 U/L (7-52); AST 18 U/L (13-39); Albumin/Globulin Ratio 1.4 (1-3); Alkaline Phosphatase 44 U/L (35-149); Blood Urea Nitrogen 19 mg/dL (6-24); EGFR African American 73.5 (>60); EGFR Non-African American 60.8 (>60); Globulin 2.8 g/dL (2-4); Glucose 85 mg/dL (70-100); INR 1.17 (0.86-1.15); Total Protein 6.6 g/dL (6.4-8.9)
[2021-01-22 13:52] LABS: Troponin I 0.15 ng/mL (<0.03)
[2021-01-22] MEDS ORDERED: KCL 20 MEQ/100 ML IVPREMIX 20 MEQ/100 ML BAG IV ONE (14:04)
[2021-01-22] MEDS ORDERED: Enoxaparin 80 MG/0.8 ML SYR SUBCUT ONE (14:55)
[2021-01-22] MEDS ORDERED: Metoprolol Tartrate 5 mg VIAL 5 ml VIAL (1 mg/ml) IV ONE (15:00)
[2021-01-22 16:23] LABS: Troponin I 0.14 ng/mL (<0.03)
[2021-01-22] MEDS ORDERED: Potassium Chlor 20 meq TAB.ER PO ONE ×2 (18:10→19:30)
[2021-01-22 19:11] LABS: Troponin I 0.16 ng/mL (<0.03)
[2021-01-22] MEDS ORDERED: Enoxaparin 40 MG/0.4 ML SYR SUBCUT SCH (23:00)
[2021-01-23] MEDS: Enoxaparin 80 MG/0.8 ML SYR SUBCUT SCH ×2 (03:39→15:56)
[2021-01-23 06:27] LABS: Hematocrit 41 % (35-47); Hemoglobin 13.1 g/dL (12.0-16.0); Mean Corpuscular HGB Conc 32 g/dL (31-36); Mean Corpuscular Hemoglobin 27 pg (27-31); Mean Corpuscular Volume 84 fL (80-97); Platelet Count 163 10^3/uL (150-450); Red Blood Count 4.84 10^6 /uL (3.70-4.87); Red Cell Distribution Width 15 % (10-15); White Blood Count 5.5 10^3/uL (3.5-10.8)
[2021-01-23 06:44] LABS: Anion Gap 11 mmol/L (2-11); Blood Urea Nitrogen 13 mg/dL (6-24); CO2 Carbon Dioxide 23 mmol/L (22-32); Calcium 9.5 mg/dL (8.6-10.3); Chloride 106 mmol/L (101-111); EGFR African American 80.6 (>60); EGFR Non-African American 66.6 (>60); Glucose 87 mg/dL (70-100); Sodium 140 mmol/L (135-145)
[2021-01-23 06:50] LABS: Troponin I 0.17 ng/mL (<0.03)
[2021-01-23 08:13] LABS: Cholesterol 227 mg/dL; HDL Cholesterol 71.4 mg/dL; LDL Cholesterol 128 mg/dL; Triglycerides 140 mg/dL
[2021-01-23] MEDS: Vitamin THERAPEUTIC TAB PO SCH (09:15)
[2021-01-23] MEDS: Aspirin EC 81 mg TAB.EC (enteric coated) PO SCH (09:15)
[2021-01-23] MEDS: Cholecalciferol (VIT D3) 1,000 unit TAB PO SCH (09:15)
[2021-01-23] MEDS: DULoxetine DR 20 mg CAP PO SCH (09:15)
[2021-01-23 09:50] LABS: Troponin I 0.16 ng/mL (<0.03)
[2021-01-24] MEDS: Enoxaparin 80 MG/0.8 ML SYR SUBCUT SCH ×2 (02:20→14:36)
[2021-01-24] MEDS: Aspirin EC 81 mg TAB.EC (enteric coated) PO SCH (09:57)
[2021-01-24] MEDS: Cholecalciferol (VIT D3) 1,000 unit TAB PO SCH (09:57)
[2021-01-24] MEDS: Vitamin THERAPEUTIC TAB PO SCH (09:58)
[2021-01-24] MEDS: DULoxetine DR 20 mg CAP PO SCH (09:58)
[2021-01-25] MEDS: Enoxaparin 80 MG/0.8 ML SYR SUBCUT SCH ×2 (02:27→13:58)
[2021-01-25] MEDS: Aspirin EC 81 mg TAB.EC (enteric coated) PO SCH (08:08)
[2021-01-25] MEDS: DULoxetine DR 20 mg CAP PO SCH (08:08)
[2021-01-25] MEDS: Cholecalciferol (VIT D3) 1,000 unit TAB PO SCH (08:08)
[2021-01-25] MEDS: Vitamin THERAPEUTIC TAB PO SCH (08:08)
[2021-01-25] MEDS ORDERED: Aminophylline 25 MG/ML VIAL ONE (11:16)
[2021-01-25] MEDS ORDERED: Regadenoson 0.4 MG/5 ML SYRINGE ONE (11:16)
[2021-01-25 11:22] VITALS: BP 149/80
== END 2021-01-25 16:30 | disposition home or self-care (01) | DRG 282 ==
LOC: ED 12:22 → MEDTELE 22:59
PROVIDERS: ADMIT Internal Medicine; ATTEND Internal Medicine

== ENCOUNTER 2021-03-25 02:37 | Inpatient (IN) ==
[2021-03-25] MEDS ORDERED: Atropine 0.1 MG/ML 10 ml SYR (1 mg) ONE ×2 (02:55→11:16)
[2021-03-25] MEDS ORDERED: NS 0.9% 1000 ml BAG 1,000 ML IV ONE (03:02)
[2021-03-25] MEDS ORDERED: Atropine 1 MG/ML INJ 1 ML VIAL IV PUSH ONE (03:04)
[2021-03-25 03:29] LABS: Hematocrit 37 % (35-47); Hemoglobin 12.1 g/dL (12.0-16.0); Mean Corpuscular HGB Conc 33 g/dL (31-36); Mean Corpuscular Hemoglobin 28 pg (27-31); Mean Corpuscular Volume 84 fL (80-97); Mean Platelet Volume 9.6 fL (7.4-10.4); Platelet Count 176 10^3/uL (150-450); Red Blood Count 4.38 10^6 /uL (3.70-4.87); Red Cell Distribution Width 15 % (10-15); White Blood Count 9.1 10^3/uL (3.5-10.8)
[2021-03-25 03:44] LABS: ALT 11 U/L (7-52); Albumin 3.8 g/dL (3.2-5.2); Albumin/Globulin Ratio 1.2 (1-3); Alkaline Phosphatase 42 U/L (35-149); Blood Urea Nitrogen 21 mg/dL (6-24); CO2 Carbon Dioxide 25 mmol/L (22-32); Chloride 106 mmol/L (101-111); EGFR African American 41.9 (>60); EGFR Non-African American 34.7 (>60); Globulin 3.3 g/dL (2-4); Glucose 121 mg/dL (70-100); Magnesium 2.1 mg/dL (1.9-2.7); Sodium 140 mmol/L (135-145); Total Protein 7.1 g/dL (6.4-8.9)
[2021-03-25 04:07] LABS: Troponin I 0.08 ng/mL (<0.03)
[2021-03-25 04:17] LABS: Alcohol, S < 13 mg/dL (<13)
[2021-03-25 04:18] LABS: Anion Gap 9 mmol/L (2-11)
[2021-03-25 04:29] LABS: TSH Ultra Thyroid Stim Horm 5.54 mcIU/mL (0.34-5.60)
[2021-03-25 04:30] LABS: Rapid COVID-19 Molecular Undetected (Undetected)
[2021-03-25 05:36] LABS: ABS Basophils 0.1 10^3/ul (0-0.2); ABS Eosinophils 0.2 10^3/ul (0-0.6); ABS Lymphocytes 5.8 10^3/ul (1.0-4.8); ABS Monocytes 0.5 10^3/ul (0-0.8); ABS Neutrophils 2.6 10^3/ul (1.5-7.7); Eosinophil % 1.7 %; Lymphocyte % 63.6 %
[2021-03-25 05:47] LABS: Potassium Redraw 3.5 mmol/L (3.5-5.0)
[2021-03-25 08:09] LABS: Phosphorus 3.6 mg/dL (2.5-5.0)
[2021-03-25] MEDS: Aspirin EC 81 mg TAB.EC (enteric coated) PO SCH (08:12)
[2021-03-25 08:16] LABS: Troponin I 0.08 ng/mL (<0.03)
[2021-03-25] MEDS ORDERED: Clindamycin 900 MG/D5W BAG 900 MG/50 ML BAG IVPB ONE (08:34)
[2021-03-25] MEDS ORDERED: NS 0.9% 1000 ml BAG 1,000 ML IV SCH (08:45)
[2021-03-25] MEDS ORDERED: D5W 1/2 NS 1000 ml BAG 1,000 ML IV SCH (09:00)
[2021-03-25] MEDS ORDERED: Naloxone 0.4 mg VIAL 0.4 mg/ml 1 ml VIAL ONE (10:36)
[2021-03-25] MEDS ORDERED: fentaNYL 100 mcg/2 ml 50 MCG/ML VIAL ONE (10:36)
[2021-03-25] MEDS ORDERED: Flumazenil 0.5 mg/5 ml 0.1 MG/ML 5 ml VIAL ONE (10:36)
[2021-03-25] MEDS ORDERED: Midazolam 5 mg/5 ml VIAL 1 mg/ml 5 ml VIAL (5 mg) ONE (10:36)
[2021-03-25] MEDS ORDERED: Lidocaine 1% VIAL 10 MG/ML VIAL ONE ×2 (10:36→11:21)
[2021-03-25] MEDS ORDERED: Iohexol 300 (CONTRAST) 10 ML SDV ONE ×2 (10:50→11:39)
[2021-03-25] MEDS ORDERED: diPHENhydraMINE IV 50 MG/ML 1 ml VIAL (BENADRYL) ONE (12:15)
[2021-03-25] MEDS ORDERED: oxyCODONE/Acetamin 5/325 mg TAB PO PRN (13:28)
[2021-03-25] MEDS: Clindamycin 600 MG/D5W BAG 600 MG/50 ML BAG IV SCH (17:33)
[2021-03-26] MEDS: Clindamycin 600 MG/D5W BAG 600 MG/50 ML BAG IV SCH ×2 (03:35→10:57)
[2021-03-26 08:36] LABS: ABS Eosinophils 0.1 10^3/ul (0-0.6); ABS Lymphocytes 2.9 10^3/ul (1.0-4.8); ABS Monocytes 0.4 10^3/ul (0-0.8); ABS Neutrophils 2.9 10^3/ul (1.5-7.7); Eosinophil % 2.3 %; Hematocrit 33 % (35-47); Hemoglobin 10.8 g/dL (12.0-16.0); Lymphocyte % 45.8 %; Mean Corpuscular HGB Conc 33 g/dL (31-36); Mean Corpuscular Hemoglobin 28 pg (27-31); Mean Corpuscular Volume 84 fL (80-97); Mean Platelet Volume 8.8 fL (7.4-10.4); Platelet Count 121 10^3/uL (150-450); Red Blood Count 3.91 10^6 /uL (3.70-4.87); Red Cell Distribution Width 16 % (10-15); White Blood Count 6.4 10^3/uL (3.5-10.8)
[2021-03-26 08:54] LABS: Calcium 8.6 mg/dL (8.6-10.3); EGFR African American 57.9 (>60); EGFR Non-African American 47.8 (>60); Potassium 3.7 mmol/L (3.5-5.0)
[2021-03-26 09:04] LABS: INR 1.15 (0.86-1.15)
[2021-03-26] MEDS: Aspirin EC 81 mg TAB.EC (enteric coated) PO SCH (09:15)
[2021-03-26 12:02] VITALS: BP 138/72
== END 2021-03-26 14:53 | disposition home or self-care (01) | DRG 243 ==
LOC: ED 02:37 → SUATTDRO 06:18 → ICU 06:18 → MEDTELE 03-26 05:48
PROVIDERS: ADMIT Internal Medicine; ATTEND Internal Medicine

== ENCOUNTER 2022-02-24 08:29 | Inpatient (IN) ==
[2022-02-24 09:15] LABS: ABS Lymphocytes 1.5 10^3/ul (1.0-4.8); ABS Monocytes 0.4 10^3/ul (0-0.8); ABS Neutrophils 3.2 10^3/ul (1.5-7.7); Eosinophil % 0.5 %; Hematocrit 40 % (35-47); Hemoglobin 12.7 g/dL (12.0-16.0); Lymphocyte % 28.8 %; Mean Corpuscular HGB Conc 32 g/dL (31-36); Mean Corpuscular Hemoglobin 26 pg (27-31); Mean Corpuscular Volume 82 fL (80-97); Mean Platelet Volume 9.6 fL (7.4-10.4); Nucleated Red Blood Cells % 0.1; Platelet Count 108 10^3/uL (150-450); Red Cell Distribution Width 15 % (10-15); White Blood Count 5.1 10^3/uL (3.5-10.8)
[2022-02-24 09:23] LABS: Activated Partial Thrombo Time 30.3 seconds (26.0-38.0); INR 1.09 (0.89-1.11)
[2022-02-24] MEDS ORDERED: Midazolam 5 mg/5 ml VIAL 1 mg/ml 5 ml VIAL (5 mg) ONE ×3 (10:10→13:33)
[2022-02-24] MEDS ORDERED: fentaNYL 100 mcg/2 ml 50 MCG/ML VIAL ONE ×2 (10:10→13:33)
[2022-02-24 10:19] LABS: Calcium 9.9 mg/dL (8.6-10.3); Potassium 4.3 mmol/L (3.5-5.0); eGFR CKD-EPI 33.8 (>60)
[2022-02-24] MEDS ORDERED: Lidocaine 1% VIAL 10 MG/ML VIAL ONE ×2 (10:27→13:29)
[2022-02-24] MEDS ORDERED: Iohexol 350 (CONTRAST) 100 ML PAK IV ONE ×2 (10:51→13:55)
[2022-02-24] MEDS ORDERED: Iohexol 300 (CONTRAST) 10 ML SDV ONE ×2 (10:53→13:57)
[2022-02-24] MEDS ORDERED: Vancomycin 1,250 MG IV x ONCE IVPB ONE (11:00)
[2022-02-24] MEDS ORDERED: Heparin 2 UNITS/ML 1000 mls 1,000 ML IV ONE (11:09)
[2022-02-24] MEDS ORDERED: SODIUM CHLORIDE 0.9% ONE (15:00)
[2022-02-24] MEDS ORDERED: VANCOMYCIN ONE (15:00)
[2022-02-24] MEDS: CMCS: Irbesartan 150 mg TAB (NF) PO SCH (16:26)
[2022-02-24 16:43] LABS: Hematocrit 37 % (35-47); Hemoglobin 11.3 g/dL (12.0-16.0); Mean Corpuscular HGB Conc 31 g/dL (31-36); Mean Corpuscular Hemoglobin 26 pg (27-31); Mean Corpuscular Volume 84 fL (80-97); Mean Platelet Volume 10.5 fL (7.4-10.4); Platelet Count 106 10^3/uL (150-450); Red Blood Count 4.39 10^6 /uL (3.70-4.87); Red Cell Distribution Width 16 % (10-15); White Blood Count 5.9 10^3/uL (3.5-10.8)
[2022-02-24] MEDS ORDERED: Ondansetron 4 mg VIAL 2 MG/ML 2 ml VIAL IV PRN (20:22)
[2022-02-24] MEDS ORDERED: Ondansetron 4 mg VIAL 2 MG/ML 2 ml VIAL ONE (20:22)
[2022-02-24] MEDS ORDERED: Lactated Ringers 1000 ml BAG 1,000 ML IV ONE (20:34)
[2022-02-24 22:50] LABS: ABS Eosinophils 0.1 10^3/ul (0-0.6); ABS Monocytes 0.5 10^3/ul (0-0.8); ABS Neutrophils 4.9 10^3/ul (1.5-7.7); Eosinophil % 1.5 %; Hematocrit 33 % (35-47); Hemoglobin 10.4 g/dL (12.0-16.0); Lymphocyte % 26.7 %; Mean Corpuscular HGB Conc 32 g/dL (31-36); Mean Corpuscular Hemoglobin 26 pg (27-31); Mean Corpuscular Volume 83 fL (80-97); Mean Platelet Volume 10.4 fL (7.4-10.4); Platelet Count 97 10^3/uL (150-450); Red Blood Count 3.93 10^6 /uL (3.70-4.87); Red Cell Distribution Width 16 % (10-15); White Blood Count 7.6 10^3/uL (3.5-10.8)
[2022-02-24 23:44] LABS: Calcium 8.8 mg/dL (8.6-10.3); Potassium 3.9 mmol/L (3.5-5.0); eGFR CKD-EPI 29.2 (>60)
[2022-02-25 06:32] LABS: Potassium 4.7 mmol/L (3.5-5.0); eGFR CKD-EPI 36.3 (>60)
[2022-02-25] MEDS ORDERED: Vancomycin 1000 MG in NS 0.9% 250 ML IVPB SCH (09:00)
[2022-02-25] MEDS: CMCS: Irbesartan 150 mg TAB (NF) PO SCH (09:15)
[2022-02-25 13:31] LABS: Hematocrit 35 % (35-47); Mean Corpuscular HGB Conc 32 g/dL (31-36); Mean Corpuscular Hemoglobin 27 pg (27-31); Mean Corpuscular Volume 84 fL (80-97); Red Blood Count 4.12 10^6 /uL (3.70-4.87); Red Cell Distribution Width 15 % (10-15); White Blood Count 6.7 10^3/uL (3.5-10.8)
[2022-02-25] MEDS ORDERED: Sulfamethox/Trimethoprim DS TAB 800/160 mg PO ONE (13:59)
[2022-02-25 14:33] LABS: ABS Eosinophils 0.1 10^3/ul (0-0.6); ABS Lymphocytes 2.2 10^3/ul (1.0-4.8); ABS Monocytes 0.4 10^3/ul (0-0.8); Large Platelets Present; Lymphocyte % 32.5 %; Mean Platelet Volume 10.1 fL (7.4-10.4); Nucleated Red Blood Cells % 0.2; Platelet Count 107 10^3/uL (150-450)
[2022-02-25 14:51] VITALS: BP 130/105
[2022-02-26] MEDS ORDERED: DULoxetine DR 20 mg CAP PO SCH (09:00)
== END 2022-02-25 14:53 | disposition home or self-care (01) | DRG 261 ==
LOC: CHICATH 08:29 → ICU 19:55
PROVIDERS: ADMIT Specialist; ATTEND Specialist